=== PATIENT | male | born 1960 | race Two or more races ===

== ENCOUNTER 2020-05-03 22:22 | Emergency (ER) | payer SELFPAY ==
[~2020-05-03] VITALS: Ht 172.7 cm; Wt 77.6 kg
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
[2020-05-03] MEDS ORDERED: HYDROCODONE/APAP 10/325MG 1 EA TABLET ONE (22:42)
[2020-05-03] MEDS ORDERED: IBUPROFEN 400 MG TABLET ONE (22:43)
--- NOTE | 2020-05-03 22:46 | NUR ---
PER RADIOLOGY WILL TAKE XRAY AT 10-15 MINS.
[2020-05-03] MEDS ORDERED: IBUPROFEN 400 MG TABLET PO ONE (23:00)
[2020-05-03] MEDS ORDERED: HYDROCODONE/APAP 10/325MG 1 EA TABLET PO ONE (23:00)
--- NOTE | 2020-05-03 23:00 | NUR ---
[facility] AT BEDSIDE
[2020-05-04 00:08] VITALS: BP 121/72
--- NOTE | 2020-05-04 00:08 | NUR ---
Patient discharged to home in stable condition. Written and verbal after care instructions given. Patient verbalizes understanding of instruction and RX. Pt ambulated with steady gait.vss.
== END 2020-05-04 00:09 | disposition home or self-care (01) ==
LOC: ER 22:24
DX: S99.822A Other specified injuries of left foot, initial encounter (principal); Z60.2 Problems related to living alone; W22.8XXA Striking against or struck by other objects, initial encounter; Y93.89 Activity, other specified; Y92.488 Other paved roadways as the place of occurrence of the external cause; Y99.8 Other external cause status
CPT/HCPCS: 73610-TC; 73630-TC